=== PATIENT | female | born 1935 | race Two or more races ===

== ENCOUNTER 2023-01-18 21:02 | Inpatient (IN) | payer OTHER ==
[2023-01-18] MEDS ORDERED: ACETAMINOPHEN 1000 MG/100 ML BAG IVPB ONE (21:47)
[2023-01-18] MEDS ORDERED: FAMOTIDINE 20 MG/50 ML IVPB 20 MG/50 ML MG IVPB ONE ×2 (21:48→21:52)
[2023-01-18] MEDS ORDERED: MAG HYDROX/AL HYDROX/SIMETH 30 ML UNIT-DOSE CUP PO ONE (21:48)
[2023-01-18] MEDS ORDERED: morphine SULFATE 4 MG/ML VIAL IVPUSH ONE (21:49)
[2023-01-18] MEDS ORDERED: MAG HYDROX/AL HYDROX/SIMETH 30 ML UNIT-DOSE CUP ONE (21:52)
[2023-01-18] MEDS ORDERED: morphine SULFATE 4 MG/ML VIAL ONE (21:52)
[2023-01-18 22:17] LABS: BASO % 0.4 % (0-2.0); EOS % 2.1 % (0-4.5); HEMATOCRIT 37.9 % (32.4-45.2); HEMOGLOBIN 11.9 GM/dL (10.7-15.3); LYMPH % 15.6 % (8-40); MCH 25.9 pg (25.7-33.7); MCHC 31.4 g/dl (32.0-36.0); MEAN CELL VOLUME 82.5 fl (80-96); MEAN PLT VOLUME 9.5 fl (7.5-11.1); MONO % 7.2 % (3.8-10.2); NEUT % 74.7 % (42.8-82.8); PLATELET COUNT 222 10^3/uL (134-434); RDW 13.9 % (11.6-15.6); WHITE BLOOD COUNT 14.2 K/mm3 (4.0-10.0)
[2023-01-18 22:36] LABS: POTASSIUM 4.7 mmol/L (3.5-5.1)
[2023-01-18 22:38] LABS: CALCIUM 9.1 mg/dL (8.5-10.1)
[2023-01-18 22:39] LABS: ALBUMIN 3.6 g/dl (3.4-5.0)
[2023-01-18 22:42] LABS: CREATININE 0.9 mg/dL (0.55-1.3)
[2023-01-18 22:44] LABS: BILIRUBIN,TOTAL 0.7 mg/dL (0.2-1)
[2023-01-19 01:42] LABS: EPI CELLS 17 /uL (0-25.1); HYALINE CASTS 0 /uL (0-3.1); PH,URINE 5.5 (5.0-8.0); URINE APPEARANCE CLEAR; URINE BACTERIA 362 /uL (0-1359); URINE BILIRUBIN NEGATIVE (NEGATIVE); URINE COLOR YELLOW; URINE GLUCOSE (UA) NEGATIVE (NEGATIVE); URINE KETONE NEGATIVE (NEGATIVE); URINE LEUK ESTERASE TRACE (NEGATIVE); URINE NITRITE NEGATIVE (NEGATIVE); URINE PROTEIN NEGATIVE (NEGATIVE); URINE RBC 1 /uL (0-23.9); URINE UROBILINOGEN 0.2 mg/dL (0.2-1.0); URINE WBC 42 /uL (0-25.8)
[2023-01-19] MEDS ORDERED: ACETAMINOPHEN 325 MG TABLET (FP) PO PRN (03:04)
[2023-01-19] MEDS ORDERED: DICLOFENAC SODIUM TP PRN (03:04)
[2023-01-19] MEDS ORDERED: LORATADINE 10 MG TABLET PO PRN (03:04)
[2023-01-19] MEDS ORDERED: SODIUM CHLORIDE 1,000 ML IV SCH (03:15)
[2023-01-19] MEDS ORDERED: CEFTRIAXONE 1 GM/50 ML BAG ONE (03:29)
[2023-01-19] MEDS: CEFTRIAXONE 1 GM in DEXTROSE 5%-WATER - 50 ML IVPB SCH ×2 (03:53→09:36)
[2023-01-19 04:36] VITALS: BMI 27.7
[2023-01-19] MEDS: INSULIN SLIDING SCALE (NOVOLOG) 1 VIAL SQ SCH ×4 (06:08→21:40)
[2023-01-19] MEDS: GABAPENTIN 300 MG CAPSULE PO SCH ×3 (06:08→21:42)
[2023-01-19] MEDS: PANTOPRAZOLE 40 MG TABLET PO SCH (06:09)
[2023-01-19 06:59] LABS: BASO % 0.6 % (0-2.0); EOS % 2.6 % (0-4.5); HEMATOCRIT 37.1 % (32.4-45.2); HEMOGLOBIN 11.3 GM/dL (10.7-15.3); LYMPH % 16.3 % (8-40); MCH 25.3 pg (25.7-33.7); MCHC 30.6 g/dl (32.0-36.0); MEAN CELL VOLUME 82.8 fl (80-96); MEAN PLT VOLUME 9.8 fl (7.5-11.1); MONO % 9.8 % (3.8-10.2); NEUT % 70.7 % (42.8-82.8); PLATELET COUNT 196 10^3/uL (134-434); RBC 4.48 M/mm3 (3.60-5.2); RDW 14.3 % (11.6-15.6); WHITE BLOOD COUNT 11.9 K/mm3 (4.0-10.0)
[2023-01-19 07:09] LABS: POTASSIUM 4.2 mmol/L (3.5-5.1)
[2023-01-19 07:14] LABS: ALBUMIN 3.2 g/dl (3.4-5.0)
[2023-01-19 07:15] LABS: BLOOD UREA NITROGEN 13.2 mg/dL (7-18); CALCIUM 8.2 mg/dL (8.5-10.1); MAGNESIUM 2.2 mg/dL (1.8-2.4)
[2023-01-19 07:17] LABS: CREATININE 0.7 mg/dL (0.55-1.3); PHOSPHOROUS 3.6 mg/dL (2.5-4.9)
[2023-01-19 07:18] LABS: TOT PROT 6.2 g/dl (6.4-8.2)
[2023-01-19 07:19] LABS: BILIRUBIN,TOTAL 0.5 mg/dL (0.2-1)
[2023-01-19] MEDS: FLUTICASONE PROP 0.05% 16 GM NASAL SPRAY NS SCH (09:36)
[2023-01-19] MEDS: SPIRONOLACTONE 25 MG TABLET PO SCH (09:36)
[2023-01-19] MEDS: ASPIRIN COATED 81 MG TABLET.EC PO SCH (09:36)
[2023-01-19] MEDS: CARVEDILOL 12.5 MG TABLET (FP) PO SCH ×2 (09:36→21:42)
[2023-01-19] MEDS: AMMONIUM LACTATE 12% LOTION 225 GM BOTTLE TP SCH ×2 (09:36→21:41)
[2023-01-19] MEDS: SACUBITRIL/VALSARTAN 24 MG-26 MG TABLET PO SCH ×2 (09:36→21:41)
[2023-01-19] MEDS: ARTIFICIAL TEARS (POLYVINYL ALCOHOL) OPTH DROPS OU SCH ×4 (09:37→21:40)
[2023-01-19] MEDS: ENOXAPARIN NA (PORCINE) 40 MG/0.4 ML DISP.SYRIN SQ SCH (09:37)
[2023-01-19] MEDS ORDERED: FAMOTIDINE 10 MG TABLET PO SCH (10:00)
[2023-01-19] MEDS ORDERED: PATIENT'S OWN MEDICATION (NON-FORMULARY) (Linaclotide [Linzess] 145 MCG Capsule) PO SCH (10:00)
[2023-01-19] MEDS: ATORVASTATIN CA 40 MG TABLET (FP) PO SCH (21:41)
[2023-01-20] MEDS: INSULIN SLIDING SCALE (NOVOLOG) 1 VIAL SQ SCH ×4 (06:03→21:30)
[2023-01-20] MEDS: GABAPENTIN 300 MG CAPSULE PO SCH ×3 (06:07→21:30)
[2023-01-20] MEDS: PANTOPRAZOLE 40 MG TABLET PO SCH (06:07)
[2023-01-20 07:15] LABS: BASO % 1.1 % (0-2.0); HEMATOCRIT 35.8 % (32.4-45.2); HEMOGLOBIN 11.2 GM/dL (10.7-15.3); LYMPH % 18.7 % (8-40); MCHC 31.3 g/dl (32.0-36.0); NEUT % 67.2 % (42.8-82.8); PLATELET COUNT 169 10^3/uL (134-434); RBC 4.31 M/mm3 (3.60-5.2); RDW 14.1 % (11.6-15.6); WHITE BLOOD COUNT 8.5 K/mm3 (4.0-10.0)
[2023-01-20 07:16] LABS: INR 1.08 (0.83-1.09); PROTHROMBIN TIME (PATIENT) 12.5 SEC (9.7-13.0)
[2023-01-20 07:18] LABS: ACTIVATED PTT 29.8 SECONDS (25.2-36.5)
[2023-01-20 07:51] LABS: POTASSIUM 4.4 mmol/L (3.5-5.1)
[2023-01-20 08:04] LABS: BLOOD UREA NITROGEN 10.7 mg/dL (7-18)
[2023-01-20 08:07] LABS: CREATININE 0.7 mg/dL (0.55-1.3); PHOSPHOROUS 4.2 mg/dL (2.5-4.9)
[2023-01-20 08:09] LABS: BILIRUBIN,TOTAL 0.6 mg/dL (0.2-1); TOT PROT 5.8 g/dl (6.4-8.2)
[2023-01-20 08:11] LABS: MAGNESIUM 2.1 mg/dL (1.8-2.4)
[2023-01-20 08:12] LABS: CALCIUM 8.4 mg/dL (8.5-10.1)
[2023-01-20] MEDS: SACUBITRIL/VALSARTAN 24 MG-26 MG TABLET PO SCH ×2 (10:01→21:30)
[2023-01-20] MEDS: ASPIRIN COATED 81 MG TABLET.EC PO SCH (10:02)
[2023-01-20] MEDS: CARVEDILOL 12.5 MG TABLET (FP) PO SCH ×2 (10:02→21:30)
[2023-01-20] MEDS: SPIRONOLACTONE 25 MG TABLET PO SCH (10:02)
[2023-01-20] MEDS: AMMONIUM LACTATE 12% LOTION 225 GM BOTTLE TP SCH ×2 (10:03→21:30)
[2023-01-20] MEDS: ARTIFICIAL TEARS (POLYVINYL ALCOHOL) OPTH DROPS OU SCH ×4 (10:03→21:30)
[2023-01-20] MEDS: ENOXAPARIN NA (PORCINE) 40 MG/0.4 ML DISP.SYRIN SQ SCH (10:04)
[2023-01-20] MEDS: CEFTRIAXONE 1 GM in DEXTROSE 5%-WATER - 50 ML IVPB SCH (10:04)
[2023-01-20] MEDS: ALBUTEROL SO4 2.5/IPRATROPIUM 0.5 INH SOL 3 ML VIAL.NEB. NEB SCH ×7 (12:26→20:25)
[2023-01-20] MEDS ORDERED: DIPHENOXYLATE 2.5/ATROPINE.025 1 COMBO TABLET PO ONE (12:37)
[2023-01-20] MEDS: FLUTICASONE PROP 0.05% 16 GM NASAL SPRAY NS SCH (13:17)
[2023-01-20] MEDS: ATORVASTATIN CA 40 MG TABLET (FP) PO SCH (21:30)
[2023-01-21] MEDS: PANTOPRAZOLE 40 MG TABLET PO SCH (06:30)
[2023-01-21] MEDS: GABAPENTIN 300 MG CAPSULE PO SCH ×3 (06:30→22:04)
[2023-01-21] MEDS: INSULIN SLIDING SCALE (NOVOLOG) 1 VIAL SQ SCH ×4 (06:30→22:07)
[2023-01-21] MEDS: ALBUTEROL SO4 2.5/IPRATROPIUM 0.5 INH SOL 3 ML VIAL.NEB. NEB SCH ×4 (07:20→20:49)
[2023-01-21] MEDS: ASPIRIN COATED 81 MG TABLET.EC PO SCH (10:01)
[2023-01-21] MEDS: ENOXAPARIN NA (PORCINE) 40 MG/0.4 ML DISP.SYRIN SQ SCH (10:02)
[2023-01-21] MEDS: CEFTRIAXONE 1 GM in DEXTROSE 5%-WATER - 50 ML IVPB SCH (10:02)
[2023-01-21] MEDS: SPIRONOLACTONE 25 MG TABLET PO SCH (10:02)
[2023-01-21] MEDS: FLUTICASONE PROP 0.05% 16 GM NASAL SPRAY NS SCH (10:02)
[2023-01-21] MEDS: CARVEDILOL 12.5 MG TABLET (FP) PO SCH ×2 (10:02→22:04)
[2023-01-21] MEDS: SACUBITRIL/VALSARTAN 24 MG-26 MG TABLET PO SCH ×2 (10:02→22:04)
[2023-01-21] MEDS: AMMONIUM LACTATE 12% LOTION 225 GM BOTTLE TP SCH ×2 (10:03→22:04)
[2023-01-21] MEDS: ARTIFICIAL TEARS (POLYVINYL ALCOHOL) OPTH DROPS OU SCH ×4 (10:03→22:05)
[2023-01-21] MEDS: ATORVASTATIN CA 40 MG TABLET (FP) PO SCH (22:03)
[2023-01-22] MEDS: GABAPENTIN 300 MG CAPSULE PO SCH ×3 (06:47→21:52)
[2023-01-22] MEDS: PANTOPRAZOLE 40 MG TABLET PO SCH (06:47)
[2023-01-22] MEDS: INSULIN SLIDING SCALE (NOVOLOG) 1 VIAL SQ SCH ×4 (06:49→22:00)
[2023-01-22 07:40] LABS: POTASSIUM 4.2 mmol/L (3.5-5.1)
[2023-01-22 07:41] LABS: BASO % 0.7 % (0-2.0); EOS % 4.7 % (0-4.5); LYMPH % 17.1 % (8-40); MCH 25.8 pg (25.7-33.7); MCHC 31.5 g/dl (32.0-36.0); MEAN CELL VOLUME 81.7 fl (80-96); MEAN PLT VOLUME 9.7 fl (7.5-11.1); MONO % 10.6 % (3.8-10.2); NEUT % 66.9 % (42.8-82.8); PLATELET COUNT 160 10^3/uL (134-434); RBC 4.29 M/mm3 (3.60-5.2); RDW 14.3 % (11.6-15.6); WHITE BLOOD COUNT 9.3 K/mm3 (4.0-10.0)
[2023-01-22 07:46] LABS: ALBUMIN 3.1 g/dl (3.4-5.0); BLOOD UREA NITROGEN 10.9 mg/dL (7-18); CALCIUM 8.2 mg/dL (8.5-10.1)
[2023-01-22 07:47] LABS: CREATININE 0.9 mg/dL (0.55-1.3)
[2023-01-22 07:49] LABS: BILIRUBIN,TOTAL 0.5 mg/dL (0.2-1); TOT PROT 5.8 g/dl (6.4-8.2)
[2023-01-22] MEDS: ALBUTEROL SO4 2.5/IPRATROPIUM 0.5 INH SOL 3 ML VIAL.NEB. NEB SCH ×4 (07:54→20:20)
[2023-01-22] MEDS: ENOXAPARIN NA (PORCINE) 40 MG/0.4 ML DISP.SYRIN SQ SCH (11:28)
[2023-01-22] MEDS: CEFTRIAXONE 1 GM in DEXTROSE 5%-WATER - 50 ML IVPB SCH (11:28)
[2023-01-22] MEDS: SPIRONOLACTONE 25 MG TABLET PO SCH (11:28)
[2023-01-22] MEDS: SACUBITRIL/VALSARTAN 24 MG-26 MG TABLET PO SCH ×2 (11:29→21:52)
[2023-01-22] MEDS: CARVEDILOL 12.5 MG TABLET (FP) PO SCH ×2 (11:29→21:52)
[2023-01-22] MEDS: ASPIRIN COATED 81 MG TABLET.EC PO SCH (11:29)
[2023-01-22] MEDS: ARTIFICIAL TEARS (POLYVINYL ALCOHOL) OPTH DROPS OU SCH ×4 (11:40→21:52)
[2023-01-22] MEDS: FLUTICASONE PROP 0.05% 16 GM NASAL SPRAY NS SCH (11:41)
[2023-01-22] MEDS: AMMONIUM LACTATE 12% LOTION 225 GM BOTTLE TP SCH ×2 (11:41→21:53)
[2023-01-22] MEDS: ATORVASTATIN CA 40 MG TABLET (FP) PO SCH (21:52)
[2023-01-23] MEDS: GABAPENTIN 300 MG CAPSULE PO SCH ×3 (06:12→21:09)
[2023-01-23] MEDS: PANTOPRAZOLE 40 MG TABLET PO SCH (06:12)
[2023-01-23] MEDS: INSULIN SLIDING SCALE (NOVOLOG) 1 VIAL SQ SCH ×4 (06:15→21:13)
[2023-01-23] MEDS: ALBUTEROL SO4 2.5/IPRATROPIUM 0.5 INH SOL 3 ML VIAL.NEB. NEB SCH ×4 (07:52→19:56)
[2023-01-23] MEDS: ASPIRIN COATED 81 MG TABLET.EC PO SCH (09:50)
[2023-01-23] MEDS: CARVEDILOL 12.5 MG TABLET (FP) PO SCH ×2 (09:52→21:08)
[2023-01-23] MEDS: SPIRONOLACTONE 25 MG TABLET PO SCH (09:52)
[2023-01-23] MEDS: SACUBITRIL/VALSARTAN 24 MG-26 MG TABLET PO SCH ×2 (09:52→21:09)
[2023-01-23] MEDS: ENOXAPARIN NA (PORCINE) 40 MG/0.4 ML DISP.SYRIN SQ SCH (09:52)
[2023-01-23] MEDS: CEFTRIAXONE 1 GM in DEXTROSE 5%-WATER - 50 ML IVPB SCH (09:53)
[2023-01-23 11:07] LABS: HEMATOCRIT 34.7 % (32.4-45.2); HEMOGLOBIN 10.7 GM/dL (10.7-15.3); MCH 25.7 pg (25.7-33.7); MEAN CELL VOLUME 82.8 fl (80-96); MEAN PLT VOLUME 9.8 fl (7.5-11.1); PLATELET COUNT 190 10^3/uL (134-434); RBC 4.18 M/mm3 (3.60-5.2); RDW 13.9 % (11.6-15.6); WHITE BLOOD COUNT 9.5 K/mm3 (4.0-10.0)
[2023-01-23 11:24] LABS: POTASSIUM 4.2 mmol/L (3.5-5.1)
[2023-01-23 11:26] LABS: CALCIUM 8.8 mg/dL (8.5-10.1)
[2023-01-23 11:27] LABS: ALBUMIN 3.1 g/dl (3.4-5.0); BLOOD UREA NITROGEN 18.9 mg/dL (7-18)
[2023-01-23 11:29] LABS: PHOSPHOROUS 4.4 mg/dL (2.5-4.9)
[2023-01-23 11:30] LABS: CREATININE 0.8 mg/dL (0.55-1.3)
[2023-01-23 11:31] LABS: TOT PROT 6.2 g/dl (6.4-8.2)
[2023-01-23 11:33] LABS: BILIRUBIN,TOTAL 0.4 mg/dL (0.2-1)
[2023-01-23] MEDS: AMMONIUM LACTATE 12% LOTION 225 GM BOTTLE TP SCH ×2 (12:10→21:13)
[2023-01-23] MEDS: ARTIFICIAL TEARS (POLYVINYL ALCOHOL) OPTH DROPS OU SCH ×4 (12:10→21:13)
[2023-01-23] MEDS: FLUTICASONE PROP 0.05% 16 GM NASAL SPRAY NS SCH (12:11)
[2023-01-23] MEDS: ATORVASTATIN CA 40 MG TABLET (FP) PO SCH (21:09)
[2023-01-23] MEDS: CEPHALEXIN MONOHYDRATE 500 MG CAPSULE (UD) PO SCH (21:09)
[2023-01-24] MEDS: GABAPENTIN 300 MG CAPSULE PO SCH (06:07)
[2023-01-24] MEDS: PANTOPRAZOLE 40 MG TABLET PO SCH (06:07)
[2023-01-24] MEDS: INSULIN SLIDING SCALE (NOVOLOG) 1 VIAL SQ SCH ×2 (06:11→11:05)
[2023-01-24 06:51] VITALS: PULSE 78; TEMP 98.2
[2023-01-24] MEDS: ALBUTEROL SO4 2.5/IPRATROPIUM 0.5 INH SOL 3 ML VIAL.NEB. NEB SCH ×2 (07:11→11:43)
[2023-01-24 08:14] LABS: POTASSIUM 4.1 mmol/L (3.5-5.1)
[2023-01-24 08:28] LABS: HEMATOCRIT 35.8 % (32.4-45.2); HEMOGLOBIN 11.1 GM/dL (10.7-15.3); MCH 25.6 pg (25.7-33.7); MEAN CELL VOLUME 82.5 fl (80-96); MEAN PLT VOLUME 9.8 fl (7.5-11.1); PLATELET COUNT 205 10^3/uL (134-434); RBC 4.33 M/mm3 (3.60-5.2); WHITE BLOOD COUNT 9.8 K/mm3 (4.0-10.0)
[2023-01-24 08:36] LABS: ALBUMIN 3.2 g/dl (3.4-5.0); CALCIUM 8.8 mg/dL (8.5-10.1)
[2023-01-24 08:37] LABS: BLOOD UREA NITROGEN 22.9 mg/dL (7-18); MAGNESIUM 1.9 mg/dL (1.8-2.4)
[2023-01-24 08:39] LABS: CREATININE 0.8 mg/dL (0.55-1.3); PHOSPHOROUS 4.5 mg/dL (2.5-4.9)
[2023-01-24 08:40] LABS: BILIRUBIN,TOTAL 0.4 mg/dL (0.2-1); TOT PROT 6.2 g/dl (6.4-8.2)
[2023-01-24 09:03] VITALS: BP 101/48; RESP 16
[2023-01-24] MEDS: CEPHALEXIN MONOHYDRATE 500 MG CAPSULE (UD) PO SCH (09:04)
[2023-01-24] MEDS: ASPIRIN COATED 81 MG TABLET.EC PO SCH (09:04)
[2023-01-24] MEDS: SPIRONOLACTONE 25 MG TABLET PO SCH (09:04)
[2023-01-24] MEDS: CARVEDILOL 12.5 MG TABLET (FP) PO SCH (09:04)
[2023-01-24] MEDS: SACUBITRIL/VALSARTAN 24 MG-26 MG TABLET PO SCH (09:04)
[2023-01-24] MEDS: FLUTICASONE PROP 0.05% 16 GM NASAL SPRAY NS SCH (09:05)
[2023-01-24] MEDS: AMMONIUM LACTATE 12% LOTION 225 GM BOTTLE TP SCH ×2 (09:05→09:14)
[2023-01-24] MEDS: ARTIFICIAL TEARS (POLYVINYL ALCOHOL) OPTH DROPS OU SCH (09:05)
[2023-01-24] MEDS: ENOXAPARIN NA (PORCINE) 40 MG/0.4 ML DISP.SYRIN SQ SCH (09:06)
== END 2023-01-24 13:06 | disposition home or self-care (01) | DRG 690 ==
LOC: JER 21:02 → JERBED 01-19 01:12 → J4S 01-19 04:19
PROVIDERS: ADMIT Internal Medicine; ATTEND Internal Medicine
DX: N39.0 Urinary tract infection, site not specified (principal); I50.22 Chronic systolic (congestive) heart failure; I42.8 Other cardiomyopathies; Q61.3 Polycystic kidney, unspecified; I25.10 Atherosclerotic heart disease of native coronary artery without angina pectoris; E11.9 Type 2 diabetes mellitus without complications; D72.829 Elevated white blood cell count, unspecified; E78.5 Hyperlipidemia, unspecified; K21.9 Gastro-esophageal reflux disease without esophagitis; I11.0 Hypertensive heart disease with heart failure; Z95.1 Presence of aortocoronary bypass graft; B96.20 Unspecified Escherichia coli [E. coli] as the cause of diseases classified elsewhere
CPT/HCPCS: 36415; 74177-TC; 76705-TC; 80053; 81003; 82962; 83605; 83735; 84100; 84484; 85025; 85027; 85610; 85730; 87086; 87186; 93005; 93010; 94640; 99285-25; Q9967

== ENCOUNTER 2023-11-27 11:02 | Emergency (ER) | payer OTHER ==
[2023-11-27 11:55] VITALS: BP 104/60; PULSE 78; RESP 18; TEMP 97.9; BMI 29.2
[2023-11-27] MEDS ORDERED: ACETAMINOPHEN INJECTION 100 ML IVPB ONE ×2 (13:47→20:43)
[2023-11-27] MEDS ORDERED: ONDANSETRON 4 MG/2 ML VIAL ONE (13:47)
[2023-11-27] MEDS ORDERED: FAMOTIDINE 20 MG/50 ML IVPB 20 MG/50 ML MG IVPB ONE (13:48)
[2023-11-27] MEDS: ONDANSETRON 4 MG/2 ML VIAL IVPUSH ONE (14:16)
[2023-11-27] MEDS: SODIUM CHLORIDE 0.9% 500 ML INFUS.BAG IV ONE (14:18)
[2023-11-27 14:19] LABS: BASO % 0.4 % (0-2.0); EOS % 1.7 % (0-4.5); HEMATOCRIT 36.7 % (32.4-45.2); HEMOGLOBIN 11.8 GM/dL (10.7-15.3); LYMPH % 10.8 % (8-40); MCH 26.9 pg (25.7-33.7); MCHC 32.3 g/dl (32.0-36.0); MEAN CELL VOLUME 83.2 fl (80-96); MEAN PLT VOLUME 8.2 fl (7.5-11.1); MONO % 5.4 % (3.8-10.2); NEUT % 81.7 % (42.8-82.8); PLATELET COUNT 214 10^3/uL (134-434); RDW 13.3 % (11.6-15.6); WHITE BLOOD COUNT 17.2 K/mm3 (4.0-10.0)
[2023-11-27] MEDS: ACETAMINOPHEN 1000 MG/100 ML BAG IVPB ONE ×2 (14:19→20:52)
[2023-11-27 14:25] LABS: INR 1.01 (0.83-1.09); PROTHROMBIN TIME (PATIENT) 11.4 SEC (9.7-13.0)
[2023-11-27 14:28] LABS: ACTIVATED PTT 29.6 SECONDS (25.2-36.5)
[2023-11-27 14:48] LABS: POTASSIUM 4.3 mmol/L (3.5-5.1)
[2023-11-27 14:49] LABS: ALBUMIN 3.7 g/dl (3.4-5.0); BLOOD UREA NITROGEN 14.8 mg/dL (7-18); CALCIUM 8.9 mg/dL (8.5-10.1)
[2023-11-27 14:52] LABS: CREATININE 0.8 mg/dL (0.55-1.3)
[2023-11-27 14:53] LABS: TOT PROT 7.2 g/dl (6.4-8.2)
[2023-11-27 14:54] LABS: BILIRUBIN,TOTAL 0.8 mg/dL (0.2-1)
[2023-11-27] MEDS: FAMOTIDINE 20 MG/50 ML IVPB 20 MG/50 ML MG IVPB ONE (15:58)
[2023-11-27] MEDS: SODIUM CHLORIDE 0.9% 1000 ML INFUS.BAG IV ONE (17:08)
[2023-11-27 17:20] LABS: EPI CELLS 14 /uL (0-25.1); HYALINE CASTS 0 /uL (0-3.1); PH,URINE 7.5 (5.0-8.0); URINE APPEARANCE CLEAR; URINE BACTERIA 34 /uL (0-1359); URINE BILIRUBIN NEGATIVE (NEGATIVE); URINE COLOR YELLOW; URINE GLUCOSE (UA) NEGATIVE (NEGATIVE); URINE KETONE NEGATIVE (NEGATIVE); URINE LEUK ESTERASE TRACE (NEGATIVE); URINE NITRITE NEGATIVE (NEGATIVE); URINE PROTEIN NEGATIVE (NEGATIVE); URINE RBC 8 /uL (0-23.9); URINE UROBILINOGEN 0.2 mg/dL (0.2-1.0); URINE WBC 21 /uL (0-25.8)
[2023-11-27] MEDS ORDERED: CEFTRIAXONE 1 GM/50 ML BAG ONE (20:05)
[2023-11-27] MEDS: CEFTRIAXONE 1 GM in DEXTROSE 5%-WATER - 100 ML IVPB ONE (20:13)
== END 2023-11-27 22:57 | disposition home or self-care (01) ==
LOC: JER 11:02
PROC: 3E03329 Introduction of Other Anti-infective into Peripheral Vein, Percutaneous Approach (ICD-10-PCS; principal; 2023-11-27)
PROC: 3E033GC Introduction of Other Therapeutic Substance into Peripheral Vein, Percutaneous Approach (ICD-10-PCS; 2023-11-27)
PROC: 3E033NZ Introduction of Analgesics, Hypnotics, Sedatives into Peripheral Vein, Percutaneous Approach (ICD-10-PCS; 2023-11-27)
PROC: 3E033NZ Introduction of Analgesics, Hypnotics, Sedatives into Peripheral Vein, Percutaneous Approach (ICD-10-PCS; 2023-11-27)
PROC: 3E033GC Introduction of Other Therapeutic Substance into Peripheral Vein, Percutaneous Approach (ICD-10-PCS; 2023-11-27)
DX: R10.84 Generalized abdominal pain (principal); R11.2 Nausea with vomiting, unspecified; R30.0 Dysuria; R39.15 Urgency of urination; Z20.822 Contact with and (suspected) exposure to COVID-19
CPT/HCPCS: 0241U-QW; 36415; 74177-TC; 80053; 81003; 83605; 83690; 84484; 85025; 85610; 85730; 93005; 93010; 96365; 96367; 96375; 96376; 99285-25; J0131; Q9967

== ENCOUNTER 2024-01-21 20:00 | Observation (INO) | payer OTHER ==
[2024-01-21 20:11] VITALS: BMI 30.5
[2024-01-21] MEDS: ACETAMINOPHEN 500 MG TABLET (FP) PO ONE (21:00)
[2024-01-21] MEDS: KETOROLAC TROMETHAMINE 30 MG/1 ML VIAL IM ONE (21:00)
[2024-01-21] MEDS: METHOCARBAMOL 500 MG TABLET PO ONE (21:00)
[2024-01-21] MEDS: LIDOCAINE 5% TOPICAL PATCH TP ONE (21:00)
[2024-01-21] MEDS ORDERED: METHOCARBAMOL 500 MG TABLET ONE (21:01)
[2024-01-21] MEDS ORDERED: LIDOCAINE 4% PATCH TP ONE (21:02)
[2024-01-21] MEDS ORDERED: ACETAMINOPHEN 325 MG TABLET (FP) ONE (21:02)
[2024-01-21] MEDS ORDERED: KETOROLAC TROMETHAMINE 30 MG/1 ML VIAL ONE (21:02)
[2024-01-21] MEDS: LIDOCAINE PATCH REMOVAL MC SCH (21:25)
[2024-01-21 22:43] LABS: HIV INTERPRETATION NEGATIVE (NEGATIVE)
[2024-01-21] MEDS ORDERED: ACETAMINOPHEN 325 MG TABLET (FP) PO PRN (23:16)
[2024-01-22] MEDS ORDERED: traMADol HCL 50 MG TABLET PO PRN (00:19)
[2024-01-22 00:28] LABS: BASO % 0.7 % (0-2.0); HEMOGLOBIN 10.9 GM/dL (10.7-15.3); LYMPH % 27.3 % (8-40); MCH 26.9 pg (25.7-33.7); MCHC 31.9 g/dl (32.0-36.0); MEAN CELL VOLUME 84.3 fl (80-96); MEAN PLT VOLUME 8.6 fl (7.5-11.1); MONO % 8.6 % (3.8-10.2); NEUT % 59.4 % (42.8-82.8); PLATELET COUNT 216 10^3/uL (134-434); RBC 4.03 M/mm3 (3.60-5.2); RDW 13.2 % (11.6-15.6); WHITE BLOOD COUNT 12.1 K/mm3 (4.0-10.0)
[2024-01-22 00:46] LABS: CHLORIDE 109 mmol/L (98-107); POTASSIUM 5.3 mmol/L (3.5-5.1); SODIUM 140 mmol/L (136-145)
[2024-01-22 00:49] LABS: ALBUMIN 3.4 g/dl (3.4-5.0); ANION GAP 9 mmol/L (4-13); CALCIUM 8.9 mg/dL (8.5-10.1); CO2 22 mmol/L (21-32)
[2024-01-22 00:50] LABS: BLOOD UREA NITROGEN 31.3 mg/dL (7-18); GLUCOSE,RANDOM 121 mg/dL (74-106)
[2024-01-22 00:52] LABS: BILIRUBIN,DIRECT 0.1 mg/dL (0.0-0.2); SGOT/AST 28 U/L (15-37); SGPT/ALT 25 U/L (13-61)
[2024-01-22 00:54] LABS: BILIRUBIN,TOTAL 0.6 mg/dL (0.2-1); TOT PROT 6.5 g/dl (6.4-8.2)
[2024-01-22 00:55] LABS: ALK PHOS 76 U/L (45-117)
[2024-01-22] MEDS: traMADol HCL 50 MG TABLET PO PRN (06:02)
[2024-01-22] MEDS: PREGABALIN 25 MG CAPSULE PO SCH (06:03)
[2024-01-22 08:21] LABS: BASO % 0.9 % (0-2.0); EOS % 4.6 % (0-4.5); HEMATOCRIT 35.8 % (32.4-45.2); HEMOGLOBIN 11.8 GM/dL (10.7-15.3); LYMPH % 28.6 % (8-40); MCH 27.4 pg (25.7-33.7); MCHC 32.9 g/dl (32.0-36.0); MEAN CELL VOLUME 83.4 fl (80-96); MEAN PLT VOLUME 8.8 fl (7.5-11.1); MONO % 7.7 % (3.8-10.2); NEUT % 58.2 % (42.8-82.8); PLATELET COUNT 190 10^3/uL (134-434); RBC 4.29 M/mm3 (3.60-5.2); RDW 13.2 % (11.6-15.6); WHITE BLOOD COUNT 10.6 K/mm3 (4.0-10.0)
[2024-01-22 08:40] LABS: POTASSIUM 4.7 mmol/L (3.5-5.1)
[2024-01-22 08:44] LABS: ALBUMIN 3.4 g/dl (3.4-5.0); BLOOD UREA NITROGEN 31.7 mg/dL (7-18); MAGNESIUM 2.3 mg/dL (1.8-2.4)
[2024-01-22 08:49] LABS: BILIRUBIN,TOTAL 0.7 mg/dL (0.2-1); PHOSPHOROUS 4.4 mg/dL (2.5-4.9); TOT PROT 6.4 g/dl (6.4-8.2)
[2024-01-22] MEDS ORDERED: PATIENT'S OWN MEDICATION (NON-FORMULARY) (Linaclotide 145 MCG Capsule) PO SCH (10:00)
[2024-01-22] MEDS: CARVEDILOL 12.5 MG TABLET (FP) PO SCH (10:29)
[2024-01-22] MEDS: SPIRONOLACTONE 25 MG TABLET PO SCH (10:29)
[2024-01-22] MEDS: ARTIFICIAL TEARS OPHTHALMIC DROPS OU SCH (10:29)
[2024-01-22] MEDS: ASPIRIN COATED 81 MG TABLET.EC PO SCH (10:29)
[2024-01-22] MEDS: SACUBITRIL/VALSARTAN 24 MG-26 MG TABLET PO SCH (10:29)
[2024-01-22] MEDS: ENOXAPARIN NA (PORCINE) 40 MG/0.4 ML DISP.SYRIN SQ SCH (10:33)
[2024-01-22] MEDS: IPRATROPIUM/ALBUTEROL (COMBIVENT) RESPIMAT 20-100 MCG IH SCH (11:33)
[2024-01-22 13:30] LABS: EPI CELLS 9 /uL (0-25.1); HYALINE CASTS 1 /uL (0-3.1); URINE APPEARANCE CLEAR; URINE BACTERIA 8 /uL (0-1359); URINE BILIRUBIN NEGATIVE (NEGATIVE); URINE COLOR YELLOW; URINE GLUCOSE (UA) NEGATIVE (NEGATIVE); URINE KETONE NEGATIVE (NEGATIVE); URINE LEUK ESTERASE 1+ (NEGATIVE); URINE NITRITE NEGATIVE (NEGATIVE); URINE PROTEIN NEGATIVE (NEGATIVE); URINE RBC 10 /uL (0-23.9); URINE UROBILINOGEN 0.2 mg/dL (0.2-1.0); URINE WBC 51 /uL (0-25.8)
[2024-01-22] MEDS: ATORVASTATIN CA 40 MG TABLET (FP) PO SCH (21:26)
[2024-01-23 09:36] LABS: POTASSIUM 5.2 mmol/L (3.5-5.1)
[2024-01-23 09:39] LABS: ALBUMIN 3.4 g/dl (3.4-5.0); CALCIUM 9.1 mg/dL (8.5-10.1)
[2024-01-23 09:40] LABS: BLOOD UREA NITROGEN 25.4 mg/dL (7-18); MAGNESIUM 2.1 mg/dL (1.8-2.4)
[2024-01-23 09:43] LABS: CREATININE 0.9 mg/dL (0.55-1.3); PHOSPHOROUS 4.4 mg/dL (2.5-4.9)
[2024-01-23 09:44] LABS: BILIRUBIN,TOTAL 0.5 mg/dL (0.2-1); TOT PROT 6.5 g/dl (6.4-8.2)
[2024-01-23 12:05] LABS: HEMATOCRIT 37.3 % (32.4-45.2); HEMOGLOBIN 11.8 GM/dL (10.7-15.3); MCH 26.7 pg (25.7-33.7); MCHC 31.6 g/dl (32.0-36.0); MEAN CELL VOLUME 84.5 fl (80-96); MEAN PLT VOLUME 9.4 fl (7.5-11.1); PLATELET COUNT 216 10^3/uL (134-434); RBC 4.42 M/mm3 (3.60-5.2); RDW 13.3 % (11.6-15.6); WHITE BLOOD COUNT 11.1 K/mm3 (4.0-10.0)
[2024-01-24] MEDS: METHOCARBAMOL 500 MG TABLET PO SCH (09:25)
[2024-01-24 09:54] LABS: BASO % 0.5 % (0-2.0); EOS % 5.6 % (0-4.5); HEMATOCRIT 36.8 % (32.4-45.2); HEMOGLOBIN 11.8 GM/dL (10.7-15.3); LYMPH % 27.2 % (8-40); MCHC 32.1 g/dl (32.0-36.0); MEAN CELL VOLUME 84.1 fl (80-96); MONO % 8.1 % (3.8-10.2); NEUT % 58.6 % (42.8-82.8); PLATELET COUNT 213 10^3/uL (134-434); RBC 4.38 M/mm3 (3.60-5.2); RDW 13.2 % (11.6-15.6); WHITE BLOOD COUNT 9.3 K/mm3 (4.0-10.0)
[2024-01-24] MEDS: LORATADINE 10 MG TABLET PO SCH (09:59)
[2024-01-24 10:46] LABS: POTASSIUM 4.7 mmol/L (3.5-5.1)
[2024-01-24 10:49] LABS: CALCIUM 9.3 mg/dL (8.5-10.1)
[2024-01-24 10:50] LABS: ALBUMIN 3.5 g/dl (3.4-5.0); BLOOD UREA NITROGEN 27.7 mg/dL (7-18)
[2024-01-24 10:54] LABS: CREATININE 0.9 mg/dL (0.55-1.3); TOT PROT 6.6 g/dl (6.4-8.2)
[2024-01-24 10:57] VITALS: RESP 17
[2024-01-24 14:51] VITALS: BP 96/52; PULSE 69; TEMP 98
== END 2024-01-24 14:51 | disposition home health service (06) ==
LOC: JER 20:00 → JERBED 23:08 → J7W 01-22 00:42
PROVIDERS: ADMIT Internal Medicine; ATTEND Nurse Practitioner
PROC: 3E023GC Introduction of Other Therapeutic Substance into Muscle, Percutaneous Approach (ICD-10-PCS; principal; 2024-01-21)
PROC: 3E013VG Introduction of Insulin into Subcutaneous Tissue, Percutaneous Approach (ICD-10-PCS; 2024-01-21)
DX: M54.9 Dorsalgia, unspecified (principal); M54.50 Low back pain, unspecified; I11.0 Hypertensive heart disease with heart failure; Z95.1 Presence of aortocoronary bypass graft; E11.9 Type 2 diabetes mellitus without complications; E78.5 Hyperlipidemia, unspecified; Z95.0 Presence of cardiac pacemaker; K57.10 Diverticulosis of small intestine without perforation or abscess without bleeding; Z90.49 Acquired absence of other specified parts of digestive tract; N28.1 Cyst of kidney, acquired; Z87.440 Personal history of urinary (tract) infections
CPT/HCPCS: 36415; 71045-TC-FY; 72131-TC; 72170-TC-FY; 72192-TC; 73502-TC-LT-FY; 80048; 80053; 80076; 81003; 83735; 84100; 85025; 85027; 85651; 86140; 86803; 87086; 87389; 96372; 97116-GP; 97161-GP; 99285-25; G0378; J3535

== ENCOUNTER 2024-02-22 04:13 | Day surgery (SDC) | payer OTHER ==
[2024-02-21 10:51] VITALS: BMI 30.6
[2024-02-22] MEDS ORDERED: BUPIVACAINE HCL/PF 0.75% 10 ML VIAL ONE (07:50)
[2024-02-22] MEDS ORDERED: LIDOCAINE HCL/PF 1% SDV 5ML VIAL ONE (07:50)
[2024-02-22] MEDS ORDERED: ACETAMINOPHEN 500 MG TABLET (FP) PO PRN (08:42)
[2024-02-22] MEDS: LIDOCAINE HCL 1% PRESERVATIVE FREE - 30ML VIAL IJ ONE ×2 (09:18)
[2024-02-22] MEDS: BUPIVACAINE HCL/PF 0.75% 10 ML VIAL NR ONE ×2 (09:23)
[2024-02-22 09:41] VITALS: BP 103/58; PULSE 73; RESP 20; TEMP 97.1
== END 2024-02-22 13:47 | disposition home or self-care (01) ==
LOC: JASU-SURG 04:13
PROVIDERS: ATTEND Pain Medicine Pain Medicine
PROC: 3E0T3BZ Introduction of Anesthetic Agent into Peripheral Nerves and Plexi, Percutaneous Approach (ICD-10-PCS; principal; 2024-02-22 09:15)
DX: M47.816 Spondylosis without myelopathy or radiculopathy, lumbar region (principal)
CPT/HCPCS: 76000-TC-FY

== ENCOUNTER 2024-03-21 04:11 | Day surgery (SDC) | payer OTHER ==
[2024-03-20 11:02] VITALS: BMI 30.5
[2024-03-21] MEDS ORDERED: ACETAMINOPHEN 500 MG TABLET (FP) PO PRN (09:20)
[2024-03-21 09:46] VITALS: RESP 18
[2024-03-21 12:25] VITALS: BP 103/57; PULSE 72; TEMP 97.4
== END 2024-03-21 12:03 | disposition home or self-care (01) ==
LOC: JASU-SURG 04:11
PROVIDERS: ATTEND Pain Medicine Pain Medicine
PROC: 3E0T3BZ Introduction of Anesthetic Agent into Peripheral Nerves and Plexi, Percutaneous Approach (ICD-10-PCS; principal; 2024-03-21 11:15)
DX: M47.816 Spondylosis without myelopathy or radiculopathy, lumbar region (principal)
CPT/HCPCS: 76000-TC-FY

== ENCOUNTER 2024-04-12 04:30 | Day surgery (SDC) | payer OTHER ==
[2024-04-11 17:01] VITALS: BMI 31.4
[2024-04-12] MEDS ORDERED: ACETAMINOPHEN 500 MG TABLET (FP) PO PRN (09:13)
[2024-04-12] MEDS: LIDOCAINE HCL 1% PRESERVATIVE FREE - 30ML VIAL IJ ONE ×2 (10:02)
[2024-04-12] MEDS: LIDOCAINE HCL/PF 2% SDV 5ML VIAL INF ONE ×2 (10:19)
[2024-04-12] MEDS: DEXAMETHASONE SOD PHOSPHATE 10 MG/1 ML VIAL IM ONE ×2 (10:27)
[2024-04-12] MEDS: BUPIVACAINE HCL/PF 0.75% 10 ML VIAL NR ONE ×3 (10:27)
[2024-04-12 13:06] VITALS: BP 117/64; PULSE 76; RESP 16; TEMP 97
== END 2024-04-12 11:30 | disposition home or self-care (01) ==
LOC: JASU-SURG 04:30
PROVIDERS: ATTEND Pain Medicine Pain Medicine
PROC: 015B3ZZ Destruction of Lumbar Nerve, Percutaneous Approach (ICD-10-PCS; principal; 2024-04-12 09:30)
DX: M47.816 Spondylosis without myelopathy or radiculopathy, lumbar region (principal)
CPT/HCPCS: 76000-TC-FY; J1100

== ENCOUNTER 2024-04-27 15:52 | Emergency (ER) | payer OTHER ==
[2024-04-27] MEDS ORDERED: CALCIUM GLUCONATE 10% - 1,000 MG/10 ML VIAL ONE (16:09)
[2024-04-27 16:17] VITALS: BP 0/0; BMI 34.3
== END 2024-04-27 20:07 | disposition expired ==
LOC: JER 15:52
DX: I46.9 Cardiac arrest, cause unspecified (principal)
CPT/HCPCS: 99291